=== PATIENT | male | born 1970 | race Caucasian/White ===

== ENCOUNTER 2018-11-03 07:22 | Day surgery (SDC) | payer BC ==
[~2018-11-03 07:22] MED LIST: Lactated Ringers 1,000 ML IV SCH
[2018-11-03] MEDS ORDERED: Propofol 200 MG/20 ML SDV IV ONE (07:23)
[2018-11-03] MEDS ORDERED: Midazolam 1 MG/ML 2 ML SDV IV ONE (07:23)
--- NOTE | 2018-11-03 09:33 | PCM.OPNOTE ---
- General Post-Op/Procedure Note Date of Surgery/Procedure: 11/03/18 Operative Procedure(s): c scope with bx Findings: transverse and sigmoid colon x2 Pre Op Diagnosis: screening Post-Op Diagnosis: transverse and sigmoid colon x2 Anesthesia Technique: MAC Primary Surgeon: Ziggy John Anesthesia Provider: Nena Payton Pathology: transverse and sigmoid colon x2 Complications: None Condition: Good Free Text/Narrative:: see dictation
--- NOTE | 2018-11-03 14:54 | OR ---
DATE OF OPERATION: 11/03/2018 SURGEON: Ziggy John MD PROCEDURE PERFORMED: Colonoscopy with cold loop and hot loop snare biopsy. PREOPERATIVE DIAGNOSIS: Need for screening C-scope. POSTOPERATIVE DIAGNOSES: Transverse colon polyp and sigmoid colon polyp x2. INDICATIONS FOR PROCEDURE: This is a 48-year-old white male, who presents for his initial screening colonoscopy. He was offered and accepted same. DESCRIPTION OF OPERATION: After an excellent IV sedation was administered, digital rectal exam was performed. No marked abnormality was noted. Flexible colonoscope was inserted and advanced to the cecum. Prep was excellent. Following findings were noted: Ascending colon unremarkable. Transverse colon unremarkable except for the distal transverse colon where a small pedunculated polyp was biopsied with the cold loop and sent for permanent. Descending colon unremarkable. Sigmoid, 2 colon polyps, one biopsied with cold loop and one with hot loop snare. Both submitted in one container. Rectum and anus unremarkable. The patient tolerated the procedure well and was taken to recovery. Results by letter. /[id number] /[id number]
== END 2018-11-03 10:20 | disposition home or self-care (01) ==
LOC: FB.SDS 07:22
PROVIDERS: ATTEND Surgery
DX: Z12.11 Encounter for screening for malignant neoplasm of colon (principal); D12.5 Benign neoplasm of sigmoid colon; D12.3 Benign neoplasm of transverse colon; I10 Essential (primary) hypertension; F17.210 Nicotine dependence, cigarettes, uncomplicated; E66.9 Obesity, unspecified; Z68.33 Body mass index [BMI] 33.0-33.9, adult; Z79.899 Other long term (current) drug therapy
CPT/HCPCS: 45380; 45385; 88305; J2250; J2704; J7120